=== PATIENT | female | born 1945 | race Caucasian/White ===

== ENCOUNTER 2020-01-27 07:44 | Day surgery (SDC) | payer MEDICARE, OTHER ==
[~2020-01-27 07:44] MED LIST: Lactated Ringers 1,000 ML IV SCH; Lidocaine 1% 4 ML ONE; Lidocaine 1%/Sod Bicarbonate in NS 8.4% 1 ML Syringe IDERM PRN; Propofol 200 MG/20 ML SDV ONE; Sodium Chloride 0.9% 10 ML Syringe FLUSH PRN
--- NOTE | 2020-01-27 08:12 | PCM.PREANE ---
Preanesthetic Assessment - Anesthesia/Transfusion/Family Hx Anesthesia History: Prior Anesthesia Without Reaction Family History of Anesthesia Reaction: No Transfusion History: No Prior Transfusion(s) - Review of Systems General: No Symptoms Pulmonary: No Symptoms Cardiovascular: No Symptoms Gastrointestinal: No Symptoms Neurological: No Symptoms Other: Reports: None - Physical Assessment NPO Status Date: 01/26/20 NPO Status Time: 18:00 ASA Class: 2 Mental Status: Alert & Oriented x3 Airway Class: Mallampati = 1 Dentition: Reports: Normal Dentition Thyro-Mental Finger Breadths: 3 Mouth Opening Finger Breadths: 3 ROM/Head Extension: Full Lungs: Clear to Auscultation, Normal Respiratory Effort Cardiovascular: Regular Rate, Regular Rhythm, Murmurs - Allergies Allergies/Adverse Reactions: Allergies Allergy/AdvReac Type Severity Reaction Status Date / Time Penicillins Allergy Rash Verified 01/26/20 18:09 - Anesthesia Plan Beta Braulio: Metoprolol Med Last Dose Date: 01/27/20 Med Last Dose Time: 07:30 - Acknowledgements Anesthesia Type Planned: MAC Pt an Appropriate Candidate for the Planned Anesthesia: Yes Alternatives and Risks of Anesthesia Discussed w Pt/Guardian: Yes Pt/Guardian Understands and Agrees with Anesthesia Plan: Yes PreAnesthesia Questionnaire HEENT History: Reports: Other (See Below) Other HEENT History: DENTAL INFECTION Cardiovascular History: Reports: Heart Murmur, High Cholesterol, Hypertension Respiratory History: Reports: Other (See Below) Other Respiratory History: PULMONARY NODULE Gastrointestinal History: Reports: None Genitourinary History: Reports: None ROBOTICS 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 History: Reports: None Musculoskeletal History: Reports: Back Pain, Chronic Neurological History: Reports: None Psychiatric History: Reports: Anxiety Endocrine/Metabolic History: Reports: Diabetes, Type II Immunologic History: Reports: None Oncologic (Cancer) History: Reports: Other (See Below) Other Oncologic History: ENDOMETRIAL CARCINOMA Dermatologic History: Reports: None - Infectious Disease History Infectious Disease History: Reports: None - Past Surgical History Head Surgeries/Procedures: Reports: None HEENT Surgical History: Reports: Cataract Surgery Cardiovascular Surgical History: Reports: None Respiratory Surgical History: Reports: None GI Surgical History: Reports: Colonoscopy Female Surgical History: Reports: Hysterectomy, Tubal Ligation Male Surgical History: Reports: None Endocrine Surgical History: Reports: None Neurological Surgical History: Reports: None Musculoskeletal Surgical History: Reports: None Oncologic Surgical History: Reports: None Dermatological Surgical History: Reports: None - SUBSTANCE USE Smoking Status *Q: Never Smoker Days Per Week of Alcohol Use: 7 Number of Drinks Per Day: 1 Total Drinks Per Week: 7 Recreational Drug Use History: No - HOME MEDS Home Medications: Home Meds OLANZapine [Olanzapine] 5 mg PO BEDTIME 01/15/18 [History] atorvaSTATin [Lipitor] 40 mg PO BEDTIME 01/15/18 [History] Aspirin 81 mg PO DAILY 01/26/20 [History] Losartan Potassium 50 mg PO DAILY 01/26/20 [History] Metoprolol Succinate 100 mg PO DAILY 01/26/20 [History] clonazePAM [Clonazepam] 1 mg PO BEDTIME 01/26/20 [History] hydroCHLOROthiazide [Hydrochlorothiazide] 12.5 mg PO DAILY 01/26/20 [History] metFORMIN HCl [Metformin HCl] 1,000 mg PO BID 01/26/20 [History] - CURRENT (IN HOUSE) MEDS Current Meds: Current Medications Lactated Ringer's (Ringers, Lactated) 1,000 mls @ 125 mls/hr IV ASDIRECTED CURTIS Stop: 01/27/20 23:00 Lidocaine/Sodium Bicarbonate (Buffered Lidocaine 1% In Ns 8.4%) 0.25 ml IDERM ONETIME PRN PRN Reason: Prior to IV Start Stop: 01/27/20 18:00 Sodium Chloride (Saline Flush) 10 ml FLUSH ASDIRECTED PRN PRN Reason: Keep Vein Open Stop: 01/27/20 18:00 Discontinued Medications Lidocaine HCl (Xylocaine-Mpf 1%) Confirm Administered Dose 4 mls @ as directed .ROUTE .STK-MED ONE Stop: 01/27/20 07:36 Propofol (Diprivan 20 Ml) Confirm Administered Dose 200 mg .ROUTE .STK-MED ONE Stop: 01/27/20 07:35
[2020-01-27] MEDS ORDERED: Propofol 200 MG/20 ML SDV ONE ×2 (09:26→09:41)
--- NOTE | 2020-01-27 10:23 | PCM48HPAN ---
Post Anesthesia Note - EVALUATION WITHIN 48HRS OF ANESTHETIC Vital Signs in Normal Range: Yes Patient Participated in Evaluation: Yes Respiratory Function Stable: Yes Airway Patent: Yes Cardiovascular Function Stable: Yes Hydration Status Stable: Yes Pain Control Satisfactory: Yes Nausea and Vomiting Control Satisfactory: Yes Mental Status Recovered: Yes Vital Signs: Last Vital Signs Temp 36.8 C 01/27/20 08:00 Pulse 57 L 01/27/20 08:00 Resp 16 01/27/20 08:00 BP 124/76 01/27/20 08:00 Pulse Ox 96 01/27/20 08:00
--- NOTE | 2020-01-28 07:59 | PCM.PRNOTE ---
- Free Text/Narrative Note: Date: 01/27/2020 Procedure: screening colonoscopy Findings: mediocre prep. 1 cm cecal polyp. Large, irregular shaped fungating lesion near hepatic flexure highly suspicious for malignancy. Detailed Report: The patient was taken to the endoscopy suite and placed in left lateral decubitus position. Time out was performed and monitored anesthesia care initiated. The anus appeared normal and digital exam was unremarkable. The colonoscope was inserted and advanced to the cecum. This was somewhat of a challenge given redundancy of the colon. The prep was suboptimal; the patient had eaten some cookies a few hours prior to procedure. There was a roughly 1 cm broad-based cecal polyp that was biopsied with hot forceps. Remnant tissue was fulgurated. Near what seemed to be the hepatic flexure, a large, irregular shaped fungating lesion that appeared grossly like a malignant tumor was identified. A large piece was resected with the hot snare but this specimen was too large to successfully retrieve. Several samples were taken with biopsy forceps. The lesion was not amenable to complete endoscopic resection. No other lesions were identified on withdrawal of the scope, though the bowel prep was not optimal for complete inspection. No significant diverticular or hemorrhoidal disease appreciated. Air was evacuated and the scope completely withdrawn. The patient tolerated the procedure well. Faraz Ely MD General Surgery
== END 2020-01-27 11:42 | disposition home or self-care (01) ==
LOC: JD.SDS 07:44
PROVIDERS: ATTEND Surgery
DX: Z12.11 Encounter for screening for malignant neoplasm of colon (principal); D12.0 Benign neoplasm of cecum; D12.3 Benign neoplasm of transverse colon; F41.9 Anxiety disorder, unspecified; E78.5 Hyperlipidemia, unspecified; I10 Essential (primary) hypertension; E78.00 Pure hypercholesterolemia, unspecified; E11.9 Type 2 diabetes mellitus without complications; Z88.0 Allergy status to penicillin; Z79.82 Long term (current) use of aspirin; Z79.899 Other long term (current) drug therapy; Z79.84 Long term (current) use of oral hypoglycemic drugs
CPT/HCPCS: 45380; J2001; J2704; J7120; 00812

== ENCOUNTER 2020-02-10 07:31 | Inpatient (IN) | payer MEDICARE, OTHER ==
[~2020-02-10 07:31] MED LIST changes: -Lidocaine 1% 4 ML ONE; -Propofol 200 MG/20 ML SDV ONE
[2020-02-10] MEDS ORDERED: Bupivacaine 0.5%/EPINEPHrine 1:200,000 50 ML MDV ONE (08:24)
--- NOTE | 2020-02-10 09:13 | PCM.PREANE ---
Preanesthetic Assessment - Anesthesia/Transfusion/Family Hx Anesthesia History: Prior Anesthesia Without Reaction Transfusion History: No Prior Transfusion(s) - Physical Assessment NPO Status Date: 02/09/20 NPO Status Time: 17:00 Vital Signs: Last Vital Signs Temp 97.3 F 02/10/20 07:50 Pulse 69 02/10/20 07:50 Resp 16 02/10/20 07:50 BP 131/76 02/10/20 07:50 Pulse Ox 97 02/10/20 07:50 Height: 1.57 m Weight: 64.864 kg Thyro-Mental Finger Breadths: 3 Mouth Opening Finger Breadths: 3 ROM/Head Extension: Full Lungs: Clear to Auscultation, Normal Respiratory Effort Cardiovascular: Regular Rate, Regular Rhythm, Murmurs - Allergies Allergies/Adverse Reactions: Allergies Allergy/AdvReac Type Severity Reaction Status Date / Time Penicillins Allergy Rash Verified 02/10/20 08:55 - Anesthesia Plan Beta Braulio: Metoprolol Med Last Dose Date: 02/10/20 Med Last Dose Time: 06:30 - Acknowledgements Anesthesia Type Planned: General Anesthesia, Regional Block (possibly TAP block post op) Pt an Appropriate Candidate for the Planned Anesthesia: Yes Alternatives and Risks of Anesthesia Discussed w Pt/Guardian: Yes Pt/Guardian Understands and Agrees with Anesthesia Plan: Yes PreAnesthesia Questionnaire HEENT History: Reports: Other (See Below) Other HEENT History: DENTAL INFECTION Cardiovascular History: Reports: Heart Murmur, High Cholesterol, Hypertension Respiratory History: Reports: Other (See Below) Other Respiratory History: PULMONARY NODULE Musculoskeletal History: Reports: Back Pain, Chronic Psychiatric History: Reports: Anxiety Endocrine/Metabolic History: Reports: Diabetes, Type II Oncologic (Cancer) History: Reports: Other (See Below) Other Oncologic History: ENDOMETRIAL CARCINOMA - Past Surgical History HEENT Surgical History: Reports: Cataract Surgery GI Surgical History: Reports: Colonoscopy Female Surgical History: Reports: Hysterectomy, Tubal Ligation Dermatological Surgical History: Reports: None - SUBSTANCE USE Smoking Status *Q: Never Smoker Second Hand Smoke Exposure: No Days Per Week of Alcohol Use: 7 Number of Drinks Per Day: 1 Total Drinks Per Week: 7 Recreational Drug Use History: No - HOME MEDS Home Medications: Home Meds OLANZapine [Olanzapine] 5 mg PO BEDTIME 01/15/18 [History] atorvaSTATin [Lipitor] 40 mg PO BEDTIME 01/15/18 [History] Aspirin 81 mg PO DAILY 01/26/20 [History] Losartan Potassium 50 mg PO DAILY 01/26/20 [History] Metoprolol Succinate 100 mg PO DAILY 01/26/20 [History] clonazePAM [Clonazepam] 1 mg PO BEDTIME 01/26/20 [History] hydroCHLOROthiazide [Hydrochlorothiazide] 12.5 mg PO DAILY 01/26/20 [History] metFORMIN HCl [Metformin HCl] 1,000 mg PO BID 01/26/20 [History] Docusate Sodium [Stool Softener] 100 mg PO DAILY 02/07/20 [History] - CURRENT (IN HOUSE) MEDS Current Meds: Current Medications Lactated Ringer's (Ringers, Lactated) 1,000 mls @ 125 mls/hr IV ASDIRECTED CURTIS Stop: 02/10/20 23:00 Lidocaine/Sodium Bicarbonate (Buffered Lidocaine 1% In Ns 8.4%) 0.25 ml IDERM ONETIME PRN PRN Reason: Prior to IV Start Stop: 02/10/20 18:00 Sodium Chloride (Saline Flush) 10 ml FLUSH ASDIRECTED PRN PRN Reason: Keep Vein Open Stop: 02/10/20 18:00 Discontinued Medications Bupivacaine HCl/Epinephrine Bitart (Marcaine 0.5%/Epinephrine 1:200,000) Confirm Administered Dose 50 ml .ROUTE .STK-MED ONE Stop: 02/10/20 08:25
[2020-02-10] MEDS ORDERED: Propofol 200 MG/20 ML SDV ONE (09:29)
[2020-02-10] MEDS ORDERED: fentaNYL 250 MCG/5 ML SDV ONE (09:29)
[2020-02-10] MEDS ORDERED: Midazolam 1 MG/ML 2 ML SDV ONE (09:29)
[2020-02-10] MEDS ORDERED: Lidocaine 1% 4 ML ONE (09:30)
[2020-02-10] MEDS ORDERED: ceFAZolin 1 GM Vial ONE (09:30)
[2020-02-10] MEDS ORDERED: Succinylcholine/Sod PF 100 MG/5 ML SYRINGE IV ONE ×2 (09:32→10:08)
[2020-02-10] MEDS ORDERED: Dexamethasone 4 MG/ML 5 ML MDV ONE (10:07)
[2020-02-10] MEDS ORDERED: HYDROmorphone 0.5 MG/0.5 ML Syringe ONE (10:45)
[2020-02-10] MEDS ORDERED: fentaNYL 100 MCG/2 ML SDV IVPUSH PRN (11:01)
[2020-02-10] MEDS ORDERED: HYDROmorphone 0.5 MG/0.5 ML Syringe IVPUSH PRN (11:01)
[2020-02-10] MEDS ORDERED: Ondansetron 4 MG/2 ML SDV ONE (11:35)
[2020-02-10] MEDS ORDERED: Lactated Ringers 1,000 ML ONE ×2 (11:39)
[2020-02-10] MEDS ORDERED: ePHEDrine Sulfate/0.9% NaCl/Pf 25 MG/5 ML SYRINGE IV ONE (12:26)
[2020-02-10] MEDS ORDERED: Morphine 2 MG/ML SYRINGE IVPUSH PRN (12:39)
[2020-02-10] MEDS ORDERED: Ondansetron 4 MG in Sodium Chloride 0.9% 50 ML IV PRN (12:44)
[2020-02-10] MEDS ORDERED: Ondansetron 4 MG/2 ML SDV IV PRN ×2 (12:48→13:00)
--- NOTE | 2020-02-10 12:58 | PCM.PRNOTE ---
- Free Text/Narrative Note: Date: 02/10/2020 Operation: laparoscopic right colectomy, diagnostic upper endoscopy Surgeon: Faraz Ely MD Assisting: VANESSA Dover Pre-op antibiotic: 2 g cefoxitin EBL: 30 cc DVT Ppx: SCDs Findings:Tattoo ink from colonoscopy helped localize the lesion, which was just proximal to the hepatic flexure. The resected specimen included the lesion in question with at least 5 cm margins in either side. The lesion measured about 3- 4 cm in greatest dimension. Side to side stapled ileocolic anastomosis completed without difficulty. Upper endoscopy was fairly unremarkable, a biopsy of the GE junction was obtained. Detailed Report: The patient was taken to the operating room and placed on the table in supine position. Timeout was performed, and general endotracheal anesthesia was initiated. Intubation was difficult, requiring a glide scope after initial attempts. Once the airway was secured, a Canas catheter was placed. The patient's left arm was tucked at her side, abdominal hair was clipped and the abdomen was prepped and draped in usual sterile fashion. 0.5% Marcaine with epinephrine was injected at all planned incision sites. A Veress needle was inserted into the abdomen at Sanderson's point without complication. The abdomen was insufflated to 15 mmHg CO2. Air was aspirated a site just superior to the umbilicus, and this was anesthetized with Marcaine. A 12 mm port was placed just superior to the umbilicus, and a 10 mm 30 degree laparoscope was inserted. The Veress insertion site was inspected, which looked okay, and the Veress needle was removed. Additional 5 mm ports were then placed under vision of the laparoscope. 1 was placed at the left upper quadrant, one at the left lower quadrant, and one at the right lower quadrant. The patient was positioned in Trendelenburg, and rotated towards the surgeon and standing on the patient's left side. Time was taken to provide good visualization of the right colon and its mesentery. With proper retraction, the ileocolic pedicle was identified. A small window was made posterior to the vessels near their base, and the colon mesentery was from the underlying retroperitoneal structures out towards the lateral aspect of the ascending colon. The base of the ileocolic pedicle was divided using the LigaSure. The duodenum was identified and protected. Once the medial to lateral mobilization was completed, the terminal ileum was inspected. Some adhesions were freed, and the appendix was freed from adhesions to surrounding tissue. The 60 mm powered laparoscopic linear stapler was used to divide the terminal ileum a few centimeters proximal to the ileocecal junction. Lateral attachments of the ascending colon were then taken down using the LigaSure. Next, attention was turned to the hepatic flexure. Omentum was reflected off of the proximal transverse colon from lateral to medial. There was some redundancy to the proximal transverse colon near the hepatic flexure, which made mobilization of the colon for anastomosis easy. With adequate mobilization, pneumoperitoneum was released and an upper midline incision measuring approximately 7 cm was made from the supraumbilical laparoscopic port site. The staple line of the terminal ileum was brought out into the operative field after placement of a medium-sized wound protector. The specimen was externalized, and an appropriate division point of the proximal transverse colon was identified. The powered stapler was used to divide the colon at this point. Specimen was completely freed, and was passed off the table. We took time to open up the specimen and ensure that the lesion in question had been resected with adequate proximal and distal margins. With this being the case, attention was then turned to making the ileocolic anastomosis. The terminal ileum and transverse colon aligned side to side easily without any tension. The antimesenteric borders were aligned, and enterotomies made at the staple lines to allow for [id number] anastomosis using the linear stapler. A 55 mm hand-held YASIR linear cutting stapler with blue load was used to make the anastomosis. The remaining enterotomy was then closed using a 30 mm TA stapler with a blue load. A reinforcing crotch stitch of 3-0 Vicryl was placed at the end of the staple line. The bowel was reduced into the abdomen, and omentum was draped down over the anastomosis. The surgeon 's gloves and gown were changed at this point, and the wound protector removed. Midline fascia was closed with running 0 PDS suture. Skin incisions were closed with deep dermal interrupted stitches of 3-0 Vicryl. Wounds were dressed with Mastisol and Steri-Strips, with gauze and Tegaderm dressings applied. Next, diagnostic upper endoscopy was performed due to findings of thickened esophageal wall and question of esophagitis on preoperative CT scan. The endoscope was inserted in the mouth and advanced to the stomach with ease. The stomach appeared grossly normal. On retroflexion, the GE junction appeared normal, without any evidence of hiatal hernia. Scope was then withdrawn into the distal esophagus. There was some hypertrophic, glandular appearing tissue near the gastroesophageal junction. A sample biopsy was obtained with cold forceps. The remainder of the esophagus appeared grossly normal. Air was suctioned from the stomach, and the scope was withdrawn. The patient tolerated the procedure well. Faraz Ely MD General Surgery
--- NOTE | 2020-02-10 13:05 | PCM.POSTAN ---
POST ANESTHESIA ASSESSMENT - MENTAL STATUS Mental Status: Somnolent - VITAL SIGNS Vital Signs: Last Vital Signs Temp 97.0 F 02/10/20 12:50 Pulse 69 02/10/20 07:50 Resp 8 L 02/10/20 12:50 BP 133/60 02/10/20 12:50 Pulse Ox 98 02/10/20 12:50 - RESPIRATORY Respiratory Status: Respiratory Rate WNL, Airway Patent, O2 Saturation Stable, Supplemental Oxygen - CARDIOVASCULAR CV Status: Pulse Rate WNL, Blood Pressure Stable - GASTROINTESTINAL GI Status: No Symptoms - PAIN Pain Score: 0 - POST OP HYDRATION Hydration Status: Adequate & Stable
[2020-02-10] MEDS: Lactated Ringers 1,000 ML IV SCH ×2 (14:41→23:54)
[2020-02-10] MEDS: Acetaminophen 325 MG Tab PO SCH ×2 (14:42→21:05)
[2020-02-10] MEDS: Heparin Sodium 5,000 Units/ML Vial SUBCUT SCH ×2 (14:47→21:05)
[2020-02-10] MEDS: Benzocaine/Cetylpyridinium/Menthol Lozenge MUCMEM PRN ×2 (15:26→21:04)
[2020-02-10] MEDS: OLANZapine 5 MG Tab PO SCH (21:05)
[2020-02-11] MEDS: Benzocaine/Cetylpyridinium/Menthol Lozenge MUCMEM PRN (02:47)
[2020-02-11] MEDS: oxyCODONE 5 MG Tab PO PRN ×4 (02:47→23:08)
[2020-02-11] MEDS: Acetaminophen 325 MG Tab PO SCH ×4 (05:38→21:03)
[2020-02-11] MEDS: Heparin Sodium 5,000 Units/ML Vial SUBCUT SCH ×3 (05:38→21:03)
--- NOTE | 2020-02-11 07:57 | PCM48HPAN ---
Post Anesthesia Note - EVALUATION WITHIN 48HRS OF ANESTHETIC Vital Signs in Normal Range: Yes Patient Participated in Evaluation: Yes Respiratory Function Stable: Yes Airway Patent: Yes Cardiovascular Function Stable: Yes Hydration Status Stable: Yes Pain Control Satisfactory: Yes Nausea and Vomiting Control Satisfactory: Yes Mental Status Recovered: Yes Vital Signs: Last Vital Signs Temp 36.6 C 02/11/20 02:47 Pulse 72 02/11/20 02:47 Resp 16 02/11/20 02:47 BP 131/109 H 02/11/20 02:51 Pulse Ox 97 02/11/20 02:47 - COMMENTS/OBSERVATIONS Free Text/Narrative:: no anesthesia complications noted
[2020-02-11] MEDS: Metoprolol Succinate 50 MG Tab.ER PO SCH (09:16)
[2020-02-11] MEDS: Rosuvastatin 10 MG Tab PO SCH (09:17)
[2020-02-11] MEDS: D5 1/2 NS w/ 20 mEq/L KCl 1,000 ML IV SCH ×2 (09:18→20:56)
[2020-02-11] MEDS: Losartan 25 MG Tab PO SCH (12:51)
[2020-02-11] MEDS: Hydrochlorothiazide 12.5 MG Cap PO SCH (12:51)
[2020-02-11] MEDS: metFORMIN 500 MG Tab PO SCH (16:20)
--- NOTE | 2020-02-11 17:08 | PCM.SN.2 ---
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 No flatus. O: AF-VSS, ample urine output no distress abdomen soft, appropriately tender, dressings clean maloney in place with clear yellow urine output A: Doing well after right colectomy P: -switch to maintenance D5 1/2 NS w 20 mEq KCl -regular diet; go slow, await return of bowel function -up out of bed ambulating today -maloney catheter out, f/u trial of void -heparin SC for DVT ppx
[2020-02-11] MEDS: OLANZapine 5 MG Tab PO SCH (20:53)
[2020-02-12] MEDS: Acetaminophen 325 MG Tab PO SCH ×3 (07:31→21:33)
[2020-02-12] MEDS: metFORMIN 500 MG Tab PO SCH ×2 (07:32→17:45)
[2020-02-12] MEDS: Heparin Sodium 5,000 Units/ML Vial SUBCUT SCH ×3 (07:32→21:33)
[2020-02-12] MEDS: oxyCODONE 5 MG Tab PO PRN ×4 (07:41→21:34)
[2020-02-12] MEDS: Rosuvastatin 10 MG Tab PO SCH (08:21)
[2020-02-12] MEDS: Metoprolol Succinate 50 MG Tab.ER PO SCH (08:22)
[2020-02-12] MEDS: Hydrochlorothiazide 12.5 MG Cap PO SCH (08:23)
[2020-02-12] MEDS: Losartan 25 MG Tab PO SCH (08:23)
[2020-02-12] MEDS ORDERED: Loperamide 2 MG Cap PO ONE (08:41)
--- NOTE | 2020-02-12 11:34 | PCM.SN.2 ---
- Free Text/Narrative Note: POD 2 s/p laparoscopic right colectomy for large tubulovillous adenoma S: reports diarrhea. Otherwise, no complaints, no issues overnight. O: AF-VSS alert, no distress comfortable on room air abd dressings clean and dry A: doing well, pain controlled, tolerating diet, ambulating. P: d/c IV fluids one time dose imodium for diarrhea anticipate discharge to home tomorrow if doing well for another 24 hrs.
[2020-02-12] MEDS: OLANZapine 5 MG Tab PO SCH (21:33)
[2020-02-13] MEDS: Heparin Sodium 5,000 Units/ML Vial SUBCUT SCH ×2 (06:09→14:22)
[2020-02-13] MEDS: metFORMIN 500 MG Tab PO SCH (06:10)
[2020-02-13] MEDS: Acetaminophen 325 MG Tab PO SCH ×2 (06:11→14:23)
[2020-02-13] MEDS: oxyCODONE 5 MG Tab PO PRN ×2 (06:11→11:19)
[2020-02-13] MEDS: Rosuvastatin 10 MG Tab PO SCH (09:05)
[2020-02-13] MEDS: Hydrochlorothiazide 12.5 MG Cap PO SCH (09:05)
[2020-02-13] MEDS: Losartan 25 MG Tab PO SCH (09:05)
[2020-02-13] MEDS: Metoprolol Succinate 50 MG Tab.ER PO SCH (09:06)
--- NOTE | 2020-02-13 12:22 | PCM.DCSUM1 ---
Discharge Summary - Hospital Course Free Text/Narrative:: Ms. 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 The lesion was not amenable to resection, and had a gross appearance suspicious for harboring malignancy. She presented for elective laparoscopic right hemicolectomy on February 08. The operation was completed without any issues. Postoperatively she did well, her pain was manageable with oral analgesics. She was able to ambulate with some assistance, and had an evaluation with the physical and occupational therapists. She continue to work on pulmonary toilet and ambulation, and on postoperative day 2 was able to tolerate a regular diet. By postoperative day 3 she had a small bowel movement and began to pass gas. On postoperative day 4, she had completely normalized and was deemed fit for discharge to home. - Discharge Data Discharge Date: 02/13/20 Discharge Disposition: Home, Self-Care 01 Condition: Good - Referral to Home Health Primary Care Physician: Tali Alonso NP - Patient Summary/Data Operative Procedure(s) Performed: laparoscopic right colectomy with ileocolic anastomosis Consults: Consultations 02/12/20 15:10 Consult to Physical Therapy [PT Evaluation and Treatment] [CONS] Routine - Patient Instructions Diet: Usual Diet as Tolerated Activity: As Tolerated, No Lifting Over 10 Pounds Showering/Bathing: May Shower Wound/Incision Care: Keep Operative Site/Wound Site Clean and Dry Notify Provider of: Fever, Increased Pain, Swelling and Redness, Drainage, Nausea and/or Vomiting - Discharge Plan *PRESCRIPTION DRUG MONITORING PROGRAM REVIEWED*: Not Applicable *COPY OF PRESCRIPTION DRUG MONITORING REPORT IN PATIENT ANTONIO: Not Applicable Prescriptions/Med Rec: oxyCODONE 5 mg PO Q4H PRN #15 tab PRN Reason: Pain Home Medications: Home Meds OLANZapine [Olanzapine] 5 mg PO BEDTIME 01/15/18 [History] atorvaSTATin [Lipitor] 40 mg PO BEDTIME 01/15/18 [History] Aspirin 81 mg PO DAILY 01/26/20 [History] Losartan Potassium 50 mg PO DAILY 01/26/20 [History] Metoprolol Succinate 100 mg PO DAILY 01/26/20 [History] clonazePAM [Clonazepam] 1 mg PO BEDTIME 01/26/20 [History] hydroCHLOROthiazide [Hydrochlorothiazide] 12.5 mg PO DAILY 01/26/20 [History] metFORMIN HCl [Metformin HCl] 1,000 mg PO BID 01/26/20 [History] Docusate Sodium [Stool Softener] 100 mg PO DAILY 02/07/20 [History] oxyCODONE 5 mg PO Q4H PRN #15 tab 02/13/20 [Rx] Oxygen Therapy Mode: Room Air Patient Handouts: Type 2 Diabetes Mellitus, Diagnosis, Adult - Discharge Summary/Plan Comment DC Time >30 min.: No - Patient Data Vitals - Most Recent: Last Vital Signs Temp 36.7 C 02/13/20 08:58 Pulse 67 02/13/20 09:06 Resp 16 02/13/20 08:58 BP 141/91 H 02/13/20 09:06 Pulse Ox 95 02/13/20 12:00 Weight - Most Recent: 63.049 kg I&O - Last 24 hours: Intake & Output 02/12/20 02/13/20 02/13/20 22:59 06:59 14:59 Intake Total 1810 500 180 Output Total 2400 800 Balance -590 -300 180 Med Orders - Current: Current Medications Acetaminophen (Tylenol) 975 mg PO Q8H [facility] Last Admin: 02/13/20 06:11 Dose: 975 mg Documented by: Benzocaine/Menthol (Cepacol Sore Throat) 1 lozenge MUCMEM Q2H PRN PRN Reason: Sore Throat Last Admin: 02/11/20 02:47 Dose: 1 lozenge Documented by: Heparin Sodium (Porcine) (Heparin Sodium) 5,000 units SUBCUT Q8H [facility] Last Admin: 02/13/20 06:09 Dose: 5,000 units Documented by: Hydrochlorothiazide (Hydrochlorothiazide) 12.5 mg PO DAILY [facility] Last Admin: 02/13/20 09:05 Dose: 12.5 mg Documented by: Losartan Potassium (Cozaar) 50 mg PO DAILY [facility] Last Admin: 02/13/20 09:05 Dose: 50 mg Documented by: Metformin HCl (Glucophage) 1,000 mg PO BIDMEALS [facility] Last Admin: 02/13/20 06:10 Dose: 1,000 mg Documented by: Metoprolol Succinate (Toprol Xl) 100 mg PO DAILY [facility] Last Admin: 02/13/20 09:06 Dose: 100 mg Documented by: Olanzapine (Zyprexa) 5 mg PO BEDTIME [facility] Last Admin: 02/12/20 21:33 Dose: 5 mg Documented by: Ondansetron HCl (Zofran) 4 mg IV Q8H PRN PRN Reason: Nausea Oxycodone HCl (Oxycodone) 5 mg PO Q4H PRN PRN Reason: Pain (moderate 4-6) Last Admin: 02/13/20 11:19 Dose: 5 mg Documented by: Rosuvastatin Calcium (Crestor) 10 mg PO DAILY [facility] Last Admin: 02/13/20 09:05 Dose: 10 mg Documented by: Discontinued Medications Bupivacaine HCl/Epinephrine Bitart (Marcaine 0.5%/Epinephrine 1:200,000) Confirm Administered Dose 50 ml .ROUTE .STK-MED ONE Stop: 02/10/20 08:25 Last Admin: 02/10/20 10:20 Dose: 30 ml Documented by: Cefazolin Sodium (Ancef) Confirm Administered Dose 2 gm .ROUTE .STK-MED ONE Stop: 02/10/20 09:31 Dexamethasone (Dexamethasone) Confirm Administered Dose 20 mg .ROUTE .STK-MED ONE Stop: 02/10/20 10:08 Ephedrine Sulfate (Ephedrine 25 Mg/5 Ml Syringe) Confirm Administered Dose 25 mg IV .STK-MED ONE Stop: 02/10/20 12:27 Fentanyl (Sublimaze) Confirm Administered Dose 250 mcg .ROUTE .STK-MED ONE Stop: 02/10/20 09:30 Fentanyl (Sublimaze) 100 mcg IVPUSH Q5M PRN PRN Reason: Pain Stop: 02/10/20 18:00 Glycopyrrolate () Confirm Administered Dose 1 mg .ROUTE .STK-MED ONE Stop: 02/10/20 12:23 Hydromorphone HCl (Dilaudid) Confirm Administered Dose 0.5 mg .ROUTE .STK-MED ONE Stop: 02/10/20 10:46 Hydromorphone HCl (Dilaudid) 0.5 mg IVPUSH Q10M PRN PRN Reason: Pain (severe 7-10) Stop: 02/10/20 18:00 Lactated Ringer's (Ringers, Lactated) 1,000 mls @ 125 mls/hr IV ASDIRECTED [facility] Stop: 02/10/20 23:00 Last Admin: 02/10/20 08:15 Dose: 125 mls/hr Documented by: Lidocaine HCl (Xylocaine-Mpf 1%) Confirm Administered Dose 4 mls @ as directed .ROUTE .STK-MED ONE Stop: 02/10/20 09:31 Cefoxitin Sodium (Mefoxin In Dextrose,Iso-Osm 2 Gm/50 Ml) Confirm Administered Dose 50 mls @ as directed .ROUTE .STK-MED ONE Stop: 02/10/20 10:09 Lactated Ringer's (Ringers, Lactated) Confirm Administered Dose 1,000 mls @ as directed .ROUTE .STK-MED ONE Stop: 02/10/20 11:40 Lactated Ringer's (Ringers, Lactated) Confirm Administered Dose 1,000 mls @ as directed .ROUTE .STK-MED ONE Stop: 02/10/20 11:40 Lactated Ringer's (Ringers, Lactated) 1,000 mls [facility] Admin: 02/10/20 23:54 Dose: 100 mls/hr Documented by: Ondansetron HCl 4 mg/ Sodium (Chloride) 52 mls @ 100 mls/hr IV Q8H PRN PRN Reason: Nausea Potassium Chloride/Dextrose/Sod Cl (D5 1/2 Ns W/ 20 Meq/L Kcl) 1,000 mls @ 75 mls/hr IV ASDIRECTED [facility] Last Admin: 02/11/20 20:56 Dose: 75 mls/hr Documented by: Lidocaine/Sodium Bicarbonate (Buffered Lidocaine 1% In Ns 8.4%) 0.25 ml IDERM ONETIME PRN PRN Reason: Prior to IV Start Stop: 02/10/20 18:00 Last Admin: 02/10/20 08:15 Dose: 0.25 ml Documented by: Loperamide HCl (Imodium) 2 mg PO ONETIME ONE Stop: 02/12/20 08:42 Last Admin: 02/12/20 09:21 Dose: 2 mg Documented by: Midazolam HCl (Versed 1 Mg/Ml) Confirm Administered Dose 4 mg .ROUTE .STK-MED O NE Stop: 02/10/20 09:30 Morphine Sulfate (Morphine) 1 mg IVPUSH Q4H PRN PRN Reason: Pain (severe 7-10) Neostigmine Methylsulfate (Neostigmine Methylsulfate) Confirm Administered Dose 5 mg .ROUTE .STK-MED ONE Stop: 02/10/20 12:23 Ondansetron HCl (Zofran) Confirm Administered Dose 8 mg .ROUTE .STK-MED ONE Stop: 02/10/20 11:36 Propofol (Diprivan 20 Ml) Confirm Administered Dose 200 mg .ROUTE .STK-MED ONE Stop: 02/10/20 09:30 Sodium Chloride (Saline Flush) 10 ml FLUSH ASDIRECTED PRN PRN Reason: Keep Vein Open Stop: 02/10/20 18:00 Vecuronium [employer] (Vecuronium) Confirm Administered Dose 10 mg .ROUTE .STK-MED ONE Stop: 02/10/20 09:29
== END 2020-02-13 15:05 | disposition home or self-care (01) | DRG 331 ==
LOC: JD.MS 07:31
PROVIDERS: ADMIT Surgery; ATTEND Surgery
PROC: 0DTF4ZZ Resection of Right Large Intestine, Percutaneous Endoscopic Approach (ICD-10-PCS; principal; 2020-02-10)
DX: C18.9 Malignant neoplasm of colon, unspecified (principal); F41.9 Anxiety disorder, unspecified; E78.5 Hyperlipidemia, unspecified; I10 Essential (primary) hypertension; G47.00 Insomnia, unspecified; E11.9 Type 2 diabetes mellitus without complications; Z88.0 Allergy status to penicillin; Z79.82 Long term (current) use of aspirin; Z79.84 Long term (current) use of oral hypoglycemic drugs; Z79.899 Other long term (current) drug therapy
CPT/HCPCS: 00790; 36415; 80048; 85025; 88305; 88309; 88341; 88342; 97110-GP; 97161-GP; A9270-GY; J0171; J0330; J0690; J0694; J1100; J1170; J1644; J2001; J2250; J2405; J2704; J2710; J3010; J3480; J3490; J7120

== ENCOUNTER 2020-05-07 07:32 | Day surgery (SDC) | payer MEDICARE, OTHER ==
[~2020-05-07 07:32] MED LIST changes: +Lidocaine 1% 4 ML ONE; +Midazolam 1 MG/ML 2 ML SDV ONE; +Propofol 200 MG/20 ML SDV ONE; +Rocuronium 50 MG/5 ML Vial ONE; +fentaNYL 250 MCG/5 ML SDV ONE
[2020-05-07] MEDS ORDERED: Bupivacaine 0.5%/EPINEPHrine 1:200,000 50 ML MDV ONE (07:50)
--- NOTE | 2020-05-07 08:13 | PCM.PREANE ---
Preanesthetic Assessment - Procedure Proposed Procedure: Laparoscopic Cholecystectomy - Anesthesia/Transfusion/Family Hx Anesthesia History: Prior Anesthesia Without Reaction Family History of Anesthesia Reaction: No Transfusion History: No Prior Transfusion(s) - Review of Systems General: No Symptoms Pulmonary: No Symptoms Cardiovascular: No Symptoms Gastrointestinal: No Symptoms Neurological: No Symptoms Other: Reports: Diabetes, Anxiety - Physical Assessment NPO Status Date: 05/06/20 NPO Status Time: 00:00 Height: 1.57 m Weight: 65 kg ASA Class: 2 Mental Status: Alert & Oriented x3 Airway Class: Mallampati = 1 Dentition: Reports: Normal Dentition Thyro-Mental Finger Breadths: 3 Mouth Opening Finger Breadths: 3 ROM/Head Extension: Full Lungs: Clear to Auscultation, Normal Respiratory Effort Cardiovascular: Regular Rate, Regular Rhythm - Allergies Allergies/Adverse Reactions: Allergies Allergy/AdvReac Type Severity Reaction Status Date / Time Penicillins Allergy Rash Verified 05/06/20 16:59 - Blood Blood Available: No Product(s) Available: None - Anesthesia Plan Pre-Op Medication Ordered: Beta Braulio Beta Braulio: Metoprolol Med Last Dose Date: 05/07/20 Med Last Dose Time: 06:00 - Acknowledgements Anesthesia Type Planned: General Anesthesia Pt an Appropriate Candidate for the Planned Anesthesia: Yes Alternatives and Risks of Anesthesia Discussed w Pt/Guardian: Yes Pt/Guardian Understands and Agrees with Anesthesia Plan: Yes PreAnesthesia Questionnaire HEENT History: Reports: Impaired Vision, Other (See Below) Other HEENT History: wears reading glasses, dental infection Cardiovascular History: Reports: Heart Murmur, High Cholesterol, Hypertension Respiratory History: Reports: Other (See Below) Other Respiratory History: PULMONARY NODULE Gastrointestinal History: Reports: Chronic Constipation Genitourinary History: Reports: None OPTICAL DESIGN ENGINEER History: Reports: None Musculoskeletal History: Reports: Back Pain, Chronic Neurological History: Reports: None Psychiatric History: Reports: Anxiety Endocrine/Metabolic History: Reports: Diabetes, Type II Hematologic History: Reports: None Immunologic History: Reports: None Oncologic (Cancer) History: Reports: Other (See Below) Other Oncologic History: ENDOMETRIAL CARCINOMA Dermatologic History: Reports: None - Infectious Disease History Infectious Disease History: Reports: None - Past Surgical History Head Surgeries/Procedures: Reports: None HEENT Surgical History: Reports: Cataract Surgery Cardiovascular Surgical History: Reports: None Respiratory Surgical History: Reports: None GI Surgical History: Reports: Colon, Colonoscopy, Other (See Below) Other GI Surgeries/Procedures: current right hemicolectomy Female Surgical History: Reports: Hysterectomy, Tubal Ligation Male Surgical History: Reports: None Endocrine Surgical History: Reports: None Neurological Surgical History: Reports: None Musculoskeletal Surgical History: Reports: None Oncologic Surgical History: Reports: None Dermatological Surgical History: Reports: None - SUBSTANCE USE Smoking Status *Q: Never Smoker Tobacco Use Within Last Twelve Months: No Second Hand Smoke Exposure: No Days Per Week of Alcohol Use: 7 Number of Drinks Per Day: 1 Total Drinks Per Week: 7 Recreational Drug Use History: No - HOME MEDS Home Medications: Home Meds OLANZapine [Olanzapine] 5 mg PO BEDTIME 01/15/18 [History] atorvaSTATin [Lipitor] 40 mg PO BEDTIME 01/15/18 [History] Aspirin 81 mg PO DAILY 01/26/20 [History] Metoprolol Succinate 100 mg PO DAILY 01/26/20 [History] clonazePAM [Clonazepam] 1 mg PO BEDTIME 01/26/20 [History] hydroCHLOROthiazide [Hydrochlorothiazide] 12.5 mg PO DAILY 01/26/20 [History] metFORMIN HCl [Metformin HCl] 1,000 mg PO BID 01/26/20 [History] - CURRENT (IN HOUSE) MEDS Current Meds: Current Medications Lactated Ringer's (Ringers, Lactated) 1,000 mls @ 125 mls/hr IV ASDIRECTED [facility] Stop: 05/07/20 23:00 Lidocaine/Sodium Bicarbonate (Buffered Lidocaine 1% In Ns 8.4%) 0.25 ml IDERM ONETIME PRN PRN Reason: Prior to IV Start Stop: 05/07/20 18:00 Sodium Chloride (Saline Flush) 10 ml FLUSH ASDIRECTED PRN PRN Reason: Keep Vein Open Stop: 05/07/20 18:00 Discontinued Medications Bupivacaine HCl/Epinephrine Bitart (Marcaine 0.5%/Epinephrine 1:200,000) Confirm Administered Dose 50 ml .ROUTE .STK-MED ONE Stop: 05/07/20 07:51 Fentanyl (Sublimaze) Confirm Administered Dose 250 mcg .ROUTE .STK-MED ONE Stop: 05/07/20 07:04 Lidocaine HCl (Xylocaine-Mpf 1%) Confirm Administered Dose 4 mls @ as directed .ROUTE .STK-MED ONE Stop: 05/07/20 07:01 Midazolam HCl (Versed 1 Mg/Ml) Confirm Administered Dose 2 mg .ROUTE .STK-MED ONE Stop: 05/07/20 07:04 Propofol (Diprivan 20 Ml) Confirm Administered Dose 200 mg .ROUTE .STK-MED ONE Stop: 05/07/20 07:01 Rocuronium [place] (Zemuron) Confirm Administered Dose 50 mg .ROUTE .STK-MED ONE Stop: 05/07/20 07:01
[2020-05-07] MEDS ORDERED: ceFAZolin 1 GM Vial ONE (08:25)
[2020-05-07] MEDS ORDERED: fentaNYL 100 MCG/2 ML SDV IVPUSH PRN (09:11)
[2020-05-07] MEDS ORDERED: Ondansetron 4 MG/2 ML SDV IVPUSH PRN (09:11)
[2020-05-07] MEDS ORDERED: HYDROmorphone 0.5 MG/0.5 ML Syringe IVPUSH ONE (09:13)
[2020-05-07] MEDS ORDERED: HYDROmorphone 0.5 MG/0.5 ML Syringe ONE ×2 (09:17→09:22)
[2020-05-07] MEDS ORDERED: fentaNYL 100 MCG/2 ML SDV ONE (09:28)
--- NOTE | 2020-05-07 10:11 | PCM.POSTAN ---
POST ANESTHESIA ASSESSMENT - MENTAL STATUS Mental Status: Alert, Oriented - VITAL SIGNS Vital Signs: Last Vital Signs Temp 36.3 C 05/07/20 07:35 Pulse 55 L 05/07/20 07:35 Resp 20 05/07/20 07:35 BP 112/64 05/07/20 07:35 Pulse Ox 98 05/07/20 07:35 - RESPIRATORY Respiratory Status: Respiratory Rate WNL, Airway Patent, O2 Saturation Stable - CARDIOVASCULAR CV Status: Pulse Rate WNL, Blood Pressure Stable - GASTROINTESTINAL GI Status: No Symptoms - PAIN Pain Score: 0 - POST OP HYDRATION Hydration Status: Adequate & Stable
--- NOTE | 2020-05-07 10:41 | PCM.PRNOTE ---
- Free Text/Narrative Note: Operative Report Operation: laparoscopic cholecystectomy Date: 05/07/2020 Attending Surgeon: Faraz Ely MD Indication for Surgery: large calcified gallstone on imaging Preoperative antibiotics: 2 g Ancef IV VTE prophylaxis: SCDs Estimated Blood Loss: 5 cc Findings: normal appearing gallbladder. The cystic artery branched near the infundibulum, with one branch going directly to the gallbladder and one running to the liver at the gallbladder fossa near the level of the infundibulum. Detailed Report: The patient underwent general endotracheal anesthesia after being placed supine on the operating table and initial timeout. The abdomen was prepped and draped in sterile fashion. A pre-incision timeout was performed confirming the patients identity and the operation to be performed. A Veress needle was inserted into the abdominal cavity below the left costal margin along the mid- clavicular line. The abdomen was insufflated with CO2 to 15 mm Hg. Gas was aspirated below the umbilicus with a syringe in order to ensure safe placement of a 5 mm bladed laparoscopic port. The 5mm 30 degree laparoscope was then inserted and viscera inspected. The gallbladder appeared normal. Two additional 5 mm ports were placed along the right subcostal region under direct vision with the laparoscope, and a 12 mm port was placed at the subxiphoid region. The gallbladder was grasped at the fundus with a locking grasper and retracted anteriorly and superiorly, exposing the infundibulum. This was grasped with the surgeons left hand grasper and retracted laterally. The hook electrode was used to open the overlying peritoneum, and this plane of dissection was developed along the edges of the gallbladder at its interface with the liver bed. A combination of hook electrode, blunt dissection with the suction occ therapist and the [place] grasper were used to carefully expose and skeletonize the cystic duct and artery. A critical view of safety was obtained. The cystic artery had a posterior branch. Hemolock clips were then placed on both structures- the proximal arterial clip was placed on the cystic artery proximal to the branch point, and each branch was clipped. Both branches were intimately associated with the gallbladder. The duct and artery were transected with laparoscopic scissors between the hemolock clips. The hook was then used to dissect the gallbladder free from its attachment to the liver. The specimen was then placed in an Endocatch bag and removed through the subxiphoid port. The liver bed was inspected and appeared hemostatic. The larger subxiphoid port was closed at the level of the fascia with vicryl suture using the PMI laparoscopic suture passer. Pneumoperitoneum was then released. All skin incisions were then closed with placement of subcuticular vicryl suture and dressed with dermabond. A total of 20 cc 0.5% marcaine with epinephrine was used for local anesthesia at the in cision sites. The patient tolerated the operation well, was extubated in the operating room and transferred to the PACU for routine post-anesthesia care.
--- NOTE | 2020-05-07 10:44 | PCM48HPAN ---
Post Anesthesia Note - EVALUATION WITHIN 48HRS OF ANESTHETIC Vital Signs in Normal Range: Yes Patient Participated in Evaluation: Yes Respiratory Function Stable: Yes Airway Patent: Yes Cardiovascular Function Stable: Yes Hydration Status Stable: Yes Pain Control Satisfactory: Yes Nausea and Vomiting Control Satisfactory: Yes Mental Status Recovered: Yes Vital Signs: Last Vital Signs Temp 36.8 C 05/07/20 10:35 Pulse 53 L 05/07/20 10:35 Resp 17 05/07/20 10:35 BP 141/72 H 05/07/20 10:35 Pulse Ox 100 05/07/20 10:35
[2020-05-07] MEDS ORDERED: oxyCODONE 5 MG Tab PO PRN (10:46)
== END 2020-05-07 13:35 | disposition home or self-care (01) ==
LOC: JD.SDS 07:32
PROVIDERS: ATTEND Surgery
DX: K80.10 Calculus of gallbladder with chronic cholecystitis without obstruction (principal); E78.00 Pure hypercholesterolemia, unspecified; I10 Essential (primary) hypertension; E11.9 Type 2 diabetes mellitus without complications; E78.5 Hyperlipidemia, unspecified; F41.9 Anxiety disorder, unspecified; Z88.0 Allergy status to penicillin; Z79.82 Long term (current) use of aspirin; Z79.84 Long term (current) use of oral hypoglycemic drugs; Z79.899 Other long term (current) drug therapy
CPT/HCPCS: 47562; 82962; A9270; J0690; J1170; J2001; J2250; J2704; J3010; J3490; J7120; 00790; 88304

== ENCOUNTER 2020-05-07 18:58 | Emergency (ER) | payer MEDICARE, OTHER ==
--- NOTE | 2020-05-07 19:47 | EDM.PDOC ---
ED HPI GENERAL MEDICAL PROBLEM - General Chief Complaint: Genitourinary Problem Stated Complaint: HAD SURGERY HASN'T VOIDED YET Time Seen by Provider: 05/07/20 19:17 Source of Information: Reports: Patient History Limitations: Reports: No Limitations - History of Present Illness INITIAL COMMENTS - FREE TEXT/NARRATIVE: Mrs. Ho is a very pleasant 74-year-old woman who underwent a laparoscopic cholecystectomy this morning, who now presents to the ED with the inability to urinate. She states that she last urinated before she came to the hospital this morning. She believes that her surgery was scheduled for around 7:00, and that she was done around 8:30. She was discharged home around 13:00, not having urinated. She states that she has still been unable to urinate, although she denies feeling suprapubic pain or pressure. She is just concerned that she has not been able to urinate so far. No prior similar symptoms. Here in the ED, the patient's initial BP is found to be elevated at 184/79, otherwise, she is hemodynamic stable, afebrile, saturating 94% on room air. Other than her inability to urinate, the patient denies having a recent fever, chills, sore throat, ear pain, nasal or sinus congestion, cough, dyspnea, chest pain, palpitations, nausea, vomiting, constipation, diarrhea, abdominal pain, urinary symptoms, recent weight gain or weight loss, recent bloody bowel movements or black bowel movements, recent joint aches, headaches, or rashes. The patient PCP is Tali Alonso NP. Her Surgeon is Dr. Faraz Ely. Right Abdomen Pain Score (Numeric/FACES): 5 - Related Data Allergies Allergy/AdvReac Type Severity Reaction Status Date / Time Penicillins Allergy Rash Verified 05/06/20 16:59 Home Meds: Home Meds OLANZapine [Olanzapine] 5 mg PO BEDTIME 01/15/18 [History] atorvaSTATin [Lipitor] 40 mg PO BEDTIME 01/15/18 [History] Aspirin 81 mg PO DAILY 01/26/20 [History] Metoprolol Succinate 100 mg PO DAILY 01/26/20 [History] clonazePAM [Clonazepam] 1 mg PO BEDTIME 01/26/20 [History] hydroCHLOROthiazide [Hydrochlorothiazide] 12.5 mg PO DAILY 01/26/20 [History] metFORMIN HCl [Metformin HCl] 1,000 mg PO BID 01/26/20 [History] ALPRAZolam [Xanax] 0.25 mg PO DAILY PRN 05/07/20 [History] oxyCODONE 5 mg PO Q4H PRN #15 tab 05/07/20 [Rx] Past Medical History HEENT History: Reports: Impaired Vision (wears glasses), Other (See Below) Cardiovascular History: Reports: High Cholesterol, Hypertension Psychiatric History: Reports: Anxiety, Other (See Below) (Insomnia) Endocrine/Metabolic History: Reports: Diabetes, Type II Oncologic (Cancer) History: Reports: Uterine (s/p hysterectomy) - Past Surgical History HEENT Surgical History: Reports: Cataract Surgery (bilateral) GI Surgical History: Reports: Cholecystectomy (05/07/2020), Colon (Laparoscopic right hemicolectomy 02/10/2020), Colonoscopy, EGD Female Surgical History: Reports: Hysterectomy (complete), Tubal Ligation Social & Family History - Family History Family Medical History: Noncontributory - Tobacco Use Smoking Status *Q: Never Smoker Second Hand Smoke Exposure: No - Caffeine Use Caffeine Use: Reports: Coffee - Alcohol Use Alcohol Use History: Yes Alcohol Use Frequency: Socially - Recreational Drug Use Recreational Drug Use: No - Living Situation & Occupation Living situation: Reports: , with Spouse Occupation: Retired ED ROS GENERAL - Review of Systems Review Of Systems: Comprehensive ROS is negative, except as noted in HPI. ED EXAM, RENAL/ - Physical Exam Exam: See Below Exam Limited By: No Limitations General Appearance: Alert, WD/WN, No Apparent Distress Eye Exam: Bilateral Eye: EOMI, Normal Inspection Ears: Normal External Exam, Hearing Grossly Normal Nose: Normal Inspection Throat/Mouth: Normal Inspection, Normal Lips, Normal Voice, No Airway Compromise Head: Atraumatic, Normocephalic Neck: Normal Inspection, Full Range of Motion Respiratory/Chest: No Respiratory Distress, Lungs Clear, Normal Breath Sounds, No Accessory Muscle Use Cardiovascular: Normal Peripheral Pulses, Regular Rate, Rhythm, No Edema, No Gallop, No JVD, No Murmur, No Rub GI/Abdominal: Normal Bowel Sounds, Soft, No Organomegaly, No Distention, No Abnormal Bruit, No Mass, Tender (mild appropriate black-incisional, but no suprapubic tenderness) (Female) Exam: Deferred Rectal (Female) Exam: Deferred Back Exam: Normal Inspection, Full Range of Motion. No: CVA Tenderness (L), CVA Tenderness (R) Extremities: Normal Inspection, Normal Range of Motion, No Pedal Edema, Normal Capillary Refill Neurological: Alert, Oriented, Normal Cognition, No Motor/Sensory Deficits Psychiatric: Normal Affect Skin Exam: Warm, Dry, Intact, Normal Color, No Rash Course - Vital Signs Last Recorded V/S: Last Vital Signs Temp 36.3 C 05/07/20 19:15 Pulse 61 05/07/20 19:15 Resp 16 05/07/20 19:15 BP 184/79 H 05/07/20 19:15 Pulse Ox 94 L 05/07/20 19:15 - Re-Assessments/Exams Free Text/Narrative Re-Assessment/Exam: 05/07/20 19:41 As above, the patient underwent a laparoscopic cholecystectomy this morning, and has not been able to urinate since prior to coming to the hospital. She does not have any suprapubic pain or pressure, but she is concerned about not being able to urinate. A bladder scan revealed 235 mL of urine. 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 Even if we split the difference at 300 mL, the patient does not have enough urine to warrant placing a catheter. I explained that the reason for the conservative approach is because Canas catheters can lead to urinary tract infections. The patient expressed understanding. I explained to the patient that the reason she cannot urinate is because of the anticholinergic effect of one of the medicines that she was given at anesthesia, and it is only a matter of time until that medicine wears off before the patient can urinate again. That could happen any time. I recommended to the patient that if she is unable to urinate by tomorrow morning, or if overnight she develops suprapubic pressure and the sensation of the need to urinate, that she then returned to the ER for reevaluation, because at that point she will most likely have over 300 mL of urine. I explained that if that were the case, we would place a Canas catheter which could stay in place over the weekend and be removed by her PCP on Monday. Again, the patient expressed understanding. Departure - Departure Time of Disposition: 19:45 Disposition: Home, Self-Care 01 Condition: Good Clinical Impression: Postoperative urinary retention - Discharge Information *PRESCRIPTION DRUG MONITORING PROGRAM REVIEWED*: Not Applicable *COPY OF PRESCRIPTION DRUG MONITORING REPORT IN PATIENT ANTONIO: Not Applicable Instructions: Acute Urinary Retention, Female, [id number] Referrals: Faraz Ely MD [Primary Care Provider] - Tali Alonso NP [Nurse Practitioner] - Forms: ED Department Discharge Additional Instructions: You were seen in the emergency room after being unable to urinate following a laparoscopic cholecystectomy this morning. A bladder scan in the ER revealed 235 mL of urine. As discussed, the reason you cannot urinate is because of the effects of one of the medicines you were given when you were anesthetized for your operation. That medicine will wear off at some point, and you will be able to urinate again, however, it is difficult to estimate when that will be. If you have not urinated by the morning, or if, overnight, you develop lower abdominal pressure and the sensation that you need to urinate, please return to the ER for reevaluation. If you have 300 mL or more of urine in your bladder, a Canas catheter will be placed. If any other problems, please do not hesitate to return to the ER. Sepsis Event Note (ED) - Evaluation Sepsis Screening Result: No Definite Risk - Focused Exam Vital Signs: Vital Signs Temp Pulse Resp BP Pulse Ox 05/07/20 19:15 36.3 C 61 16 184/79 H 94 L
== END 2020-05-07 19:53 | disposition home or self-care (01) ==
LOC: JD.ED 18:58
DX: N99.89 Other postprocedural complications and disorders of genitourinary system (principal); R33.8 Other retention of urine; I10 Essential (primary) hypertension; F41.9 Anxiety disorder, unspecified; E11.9 Type 2 diabetes mellitus without complications; Z90.710 Acquired absence of both cervix and uterus; Z88.0 Allergy status to penicillin; Z79.82 Long term (current) use of aspirin; Z79.899 Other long term (current) drug therapy; Z90.49 Acquired absence of other specified parts of digestive tract; Z79.84 Long term (current) use of oral hypoglycemic drugs; K80.10 Calculus of gallbladder with chronic cholecystitis without obstruction; E78.00 Pure hypercholesterolemia, unspecified; E78.5 Hyperlipidemia, unspecified
CPT/HCPCS: 47562; 51702; 51798; 82962; 88304; 99283; A9270; J0690; J1170; J2001; J2250; J2704; J3010; J3490; J7120; 00790; 99282

== ENCOUNTER 2020-06-28 08:36 | Emergency (ER) | payer MEDICARE, OTHER ==
[2020-06-28] MEDS ORDERED: Sodium Chloride 0.9% 1,000 ML IV STA (09:23)
[2020-06-28] MEDS ORDERED: Sodium Chloride 0.9% 10 ML Syringe FLUSH PRN (09:23)
[2020-06-28] MEDS ORDERED: Ondansetron 4 MG/2 ML SDV IVPUSH ONE (09:23)
[2020-06-28] MEDS ORDERED: HYDROmorphone 0.5 MG/0.5 ML Syringe IVPUSH ONE (09:24)
[2020-06-28] MEDS ORDERED: Potassium Chloride 10 MEQ in Premix Bag 1 BAG IV SCH (10:15)
--- NOTE | 2020-06-28 11:13 | EDM.PDOC ---
ED HPI GENERAL MEDICAL PROBLEM - General Chief Complaint: Gastrointestinal Problem Stated Complaint: NAUSEA,VOMITING AND ABDOMINAL PAIN AFTER EATING Time Seen by Provider: 06/28/20 09:04 Source of Information: Reports: Patient History Limitations: Reports: No Limitations - History of Present Illness INITIAL COMMENTS - FREE TEXT/NARRATIVE: The patient presents for abdominal pain, nausea and vomiting. This started about a week ago. She is also feeling weak. She has no fever, chills, cough, congestion, runny nose, chest pain or shortness of breath. She dose have some loose stools with it also. She has a history of colon cancer where in January she had part of her colon removed by Dr Ely. Six weeks ago she had her gallbladder removed. She has not eaten any bad food and she has not been around any one who has been sick. She has no dysuria. Onset: Gradual Duration: Week(s): (1) Location: Reports: Abdomen Quality: Reports: Ache Severity: Mild Improves with: Reports: None Worsens with: Reports: None Associated Symptoms: Reports: Nausea/Vomiting. Denies: Chest Pain, Cough, Fever/Chills, Headaches, Shortness of Breath Lower Abdomen Pain Score (Numeric/FACES): 8 - Related Data Allergies Allergy/AdvReac Type Severity Reaction Status Date / Time Penicillins Allergy Rash Verified 06/28/20 09:06 Home Meds: Home Meds OLANZapine [Olanzapine] 5 mg PO BEDTIME 01/15/18 [History] atorvaSTATin [Lipitor] 40 mg PO BEDTIME 01/15/18 [History] Aspirin 81 mg PO DAILY 01/26/20 [History] Metoprolol Succinate 100 mg PO DAILY 01/26/20 [History] clonazePAM [Clonazepam] 1 mg PO BEDTIME 01/26/20 [History] hydroCHLOROthiazide [Hydrochlorothiazide] 12.5 mg PO DAILY 01/26/20 [History] metFORMIN HCl [Metformin HCl] 500 mg PO BID 01/26/20 [History] ALPRAZolam [Xanax] 0.25 mg PO DAILY PRN 05/07/20 [History] Ondansetron [Zofran ODT] 4 mg PO Q6H PRN #20 tab.dis 06/28/20 [Rx] Potassium Chloride 20 meq PO DAILY #30 tablet.er 06/28/20 [Rx] lisinopriL [Prinivil] 20 mg PO DAILY 06/28/20 [History] Past Medical History HEENT History: Reports: Impaired Vision, Other (See Below) Other HEENT History: wears reading glasses, dental infection Cardiovascular History: Reports: High Cholesterol, Hypertension Respiratory History: Reports: Other (See Below) Other Respiratory History: PULMONARY NODULE Gastrointestinal History: Reports: Chronic Constipation Genitourinary History: Reports: None [employer] History: Reports: None Musculoskeletal History: Reports: Back Pain, Chronic Neurological History: Reports: None Psychiatric History: Reports: Anxiety, Other (See Below) Endocrine/Metabolic History: Reports: Diabetes, Type II Hematologic History: Reports: None Immunologic History: Reports: None Oncologic (Cancer) History: Reports: Uterine Other Oncologic History: ENDOMETRIAL CARCINOMA Dermatologic History: Reports: None - Infectious Disease History Infectious Disease History: Reports: None - Past Surgical History Head Surgeries/Procedures: Reports: None HEENT Surgical History: Reports: Cataract Surgery Respiratory Surgical History: Reports: None GI Surgical History: Reports: Cholecystectomy, Colon, Colonoscopy, EGD Female Surgical History: Reports: Hysterectomy, Tubal Ligation Neurological Surgical History: Reports: None Musculoskeletal Surgical History: Reports: None Dermatological Surgical History: Reports: None Social & Family History - Family History Family Medical History: Noncontributory - Tobacco Use Tobacco Use Status *Q: Never Tobacco User Second Hand Smoke Exposure: No - Caffeine Use Caffeine Use: Reports: Coffee - Alcohol Use Days Per Week of Alcohol Use: 7 Number of Drinks Per Day: 2 Total Drinks Per Week: 14 - Recreational Drug Use Recreational Drug Use: No - Living Situation & Occupation Living situation: Reports: , with Spouse Occupation: Retired ED ROS GENERAL - Review of Systems Review Of Systems: See Below Constitutional: Reports: No Symptoms HEENT: Reports: No Symptoms Respiratory: Reports: No Symptoms Cardiovascular: Reports: No Symptoms Endocrine: Reports: No Symptoms GI/Abdominal: Reports: Abdominal Pain, Diarrhea, Nausea, Vomiting : Reports: No Symptoms Musculoskeletal: Reports: No Symptoms ED EXAM, GI/ABD - Physical Exam Exam: See Below Exam Limited By: No Limitations General Appearance: Alert, No Apparent Distress Ears: Normal External Exam Nose: Normal Inspection Head: Atraumatic, Normocephalic Neck: Normal Inspection Respiratory/Chest: No Respiratory Distress, Lungs Clear, Normal Breath Sounds Cardiovascular: Regular Rate, Rhythm, No Edema, No Murmur GI/Abdominal Exam: Soft, Non-Tender, No Organomegaly, No Mass, Tender (Mild generalized abdominal pain) Course - Vital Signs Last Recorded V/S: Last Vital Signs Temp 98.5 F 06/28/20 09:03 Pulse 100 06/28/20 09:03 Resp 16 06/28/20 09:03 BP 136/77 06/28/20 09:03 Pulse Ox 100 06/28/20 09:03 - Orders/Labs/Meds Orders: Active Orders 24 hr Category Date Time Status Peripheral IV Care [RC] . DIRECTED Care 06/28/20 09:23 Active Abdomen Pelvis w Cont [CT] Stat Exams 06/28/20 09:23 Ordered Potassium Chloride [KCl 10 MEQ in Water 100 ML] 10 meq Med 06/28/20 10:15 Active Premix Bag 1 bag IV ASDIRECTED Sodium Chloride 0.9% [Saline Flush] Med 06/28/20 09:23 Active 10 ml FLUSH ASDIRECTED PRN ED Antiemetic Medication Reflex [OM.PC] Stat Oth 06/28/20 09:23 Ordered Peripheral IV Insertion Adult [OM.PC] Stat Oth 06/28/20 09:23 Ordered Medication Orders Potassium Chloride 10 meq/ (Premix) 100 mls @ 100 mls/hr IV ASDIRECTED CURTIS Stop: 06/29/20 11:14 Last Infusion: 06/28/20 12:02 Dose: 100 mls/hr Documented by: Admin: 06/28/20 10:43 Dose: 100 mls/hr Documented by: SIDDHARTHA Sodium Chloride (Saline Flush) 10 ml FLUSH ASDIRECTED PRN PRN Reason: Keep Vein Open Last Admin: 06/28/20 09:33 Dose: 10 ml Documented by: RADHA Labs: Laboratory Tests 06/28/20 06/28/20 06/28/20 Range/Units 09:10 09:10 10:45 WBC 5.35 (3.98-10.04) K/mm3 RBC 4.32 (3.98-5.22) M/mm3 Hgb 13.0 (11.2-15.7) gm/dl Hct 38.5 (34.1-44.9) % MCV 89.1 D (79.4-94.8) fl MCH 30.1 (25.6-32.2) pg MCHC 33.8 (32.2-35.5) g/dl RDW Std Deviation 42.5 (36.4-46.3) fL Plt Count 206 (182-369) K/mm3 MPV 10.6 (9.4-12.3) fl Neut % (Auto) 57.8 (34.0-71.1) % Lymph % (Auto) 14.6 L (19.3-51.7) % Carter % (Auto) 24.9 H (4.7-12.5) % Eos % (Auto) 1.9 (0.7-5.8) Baso % (Auto) 0.2 (0.1-1.2) % Neut # (Auto) 3.10 (1.56-6.13) K/mm3 Lymph # (Auto) 0.78 L (1.18-3.74) K/mm3 Carter # (Auto) 1.33 H (0.24-0.36) K/mm3 Eos # (Auto) 0.10 (0.04-0.36) K/mm3 Baso # (Auto) 0.01 (0.01-0.08) K/mm3 Manual Slide Review Abnormal smear Sodium 132 L D (136-145) mEq/L Potassium 2.8 L (3.5-5.1) mEq/L Chloride 93 L D (98-107) mEq/L Carbon Dioxide 28 (21-32) mEq/L Anion Gap 13.8 (5-15) BUN 13 (7-18) mg/dL Creatinine 0.8 (0.55-1.02) mg/dL Est Cr Clr Drug Dosing TNP Estimated GFR (MDRD) > 60 (>60) mL/min BUN/Creatinine Ratio 16.3 (14-18) Glucose 165 H (83-115) mg/dL Calcium 8.8 (8.5-10.1) mg/dL Total Bilirubin 0.7 (0.2-1.0) mg/dL AST 85 H (15-37) U/L ALT 136 H (14-59) U/L Alkaline Phosphatase 81 (46-116) U/L Total Protein 6.5 (6.4-8.2) g/dl Albumin 3.2 L (3.4-5.0) g/dl Globulin 3.3 gm/dL Albumin/Globulin Ratio 1.0 (1-2) Lipase 99 (73-393) U/L Urine Color Yellow (Yellow) Urine Appearance Clear (Clear) Urine pH 6.5 (5.0-8.0) Ur Specific [place] 1.015 (1.005-1.030) Urine Protein 1+ H (Negative) Urine Glucose (UA) Negative (Negative) Urine Ketones Negative (Negative) Urine Occult Blood Negative (Negative) Urine Nitrite Negative (Negative) Urine Bilirubin Negative (Negative) Urine Urobilinogen 0.2 (0.2-1.0) Ur Leukocyte Esterase 1+ H (Negative) Urine RBC Not seen (0-5) /hpf Urine WBC 10-20 H (0-5) /hpf Ur Squamous Epith Cells 0-5 (0-5) /hpf Urine Bacteria Few (FEW) /hpf Urine Mucus Few (FEW) /hpf Meds: Medications Generic Name Dose Route Start Last Admin Trade Name Freq PRN Reason Stop Dose Admin Potassium Chloride 10 meq/ 100 mls @ 100 mls/hr 06/28/20 10:15 06/28/20 12:02 Premix IV 06/29/20 11:14 Infused ASDIRECTED CURTIS Infusion Sodium Chloride 10 ml 06/28/20 09:23 06/28/20 09:33 Saline Flush FLUSH 10 ml ASDIRECTED PRN Administration Keep Vein Open Discontinued Medications Generic Name Dose Route Start Last Admin Trade Name Freq PRN Reason Stop Dose Admin Diatrizoate Meglum/Diatrizoate Sod 90 ml 06/28/20 12:07 06/28/20 12:18 Gastrografin 37% PO 06/28/20 12:08 90 ml ONETIME ONE Administration Hydromorphone HCl 0.25 mg 06/28/20 09:24 06/28/20 09:32 Dilaudid IVPUSH 06/28/20 09:25 0.25 mg ONETIME ONE Administration Sodium Chloride 1,000 mls @ 1,000 mls/hr 06/28/20 09:23 06/28/20 09:32 Normal Saline IV 06/28/20 10:22 1,000 mls/hr .BOLUS STA Administration Iopamidol 100 ml 06/28/20 12:07 06/28/20 12:19 Isovue-300 (61%) IVPUSH 06/28/20 12:08 100 ml ONETIME ONE Administration Ondansetron HCl 4 mg 06/28/20 09:23 06/28/20 09:32 Zofran IVPUSH 06/28/20 09:24 4 mg ONETIME ONE Administration Sodium Chloride 10 ml 06/28/20 12:07 06/28/20 12:19 Saline Flush FLUSH 06/28/20 12:08 10 ml ONETIME ONE Administration - Re-Assessments/Exams Free Text/Narrative Re-Assessment/Exam: 06/28/20 11:13 I ordered an IV NS 1L bolus, zofran 4mg IV, dilaudid 0.25mg IV, labs, UA and a CT of her abdomen and pelvis. Her CBC looks good. Her Na was low at 132. Her K was low at 2.8. Her glucose was elevated at 165. Her AST is elevated at 85. Her ALT is elevated at 136. Her lipase is negative. I am waiting for the UA and CT. 06/28/20 13:06 Her UA shwos no UTI. I did order some IV potassium. The CT shows postsurgical changes compatible with prior partial colectomy. There is mild to moderate grade dilatation of multiple small bowel loops and the remaining colon. Findings could represent ileus or mild partial obstruction. No free air identified. Status post cholecystectomy without biliary tract obstruction. Small stone in the upper pole of the left kidney. No hydronephrosis present. There is also a small stone int he midportion of the right kidney. She feels better. I do not feel this is an obstruction. I called Dr Doll and he did not think it was an obstruction either. He wants her on some zofran and follow up with Dr Ely. I will also get her on some potassium. Departure - Departure Time of Disposition: 13:15 Disposition: Home, Self-Care 01 Condition: Good Clinical Impression: Hypokalemia Abdominal pain Qualifiers: Abdominal location: generalized Qualified Code(s): R10.84 - Generalized abdominal pain Nausea & vomiting Qualifiers: Vomiting type: unspecified Vomiting Intractability: non-intractable Qualified Code(s): R11.2 - Nausea with vomiting, unspecified - Discharge Information *PRESCRIPTION DRUG MONITORING PROGRAM REVIEWED*: Not Applicable *COPY OF PRESCRIPTION DRUG MONITORING REPORT IN PATIENT ANTONIO: Not Applicable Prescriptions: Potassium Chloride 20 meq PO DAILY #30 tablet.er Ondansetron [Zofran ODT] 4 mg PO Q6H PRN #20 tab.dis PRN Reason: Nausea\vomiting Referrals: Tali Alonso, [employer] [Primary Care Provider] - Faraz Ely MD [Physician] - 2 Days Forms: ED Department Discharge Additional Instructions: Drink plenty of fluids. Advance your diet as tolerated. Take the zofran every 6 hours as needed for nausea and vomiting. Take the potassium daily. Call Dr Ely's office in the morning. Please return if you are worse. Sepsis Event Note (ED) - Evaluation Sepsis Screening Result: No Definite Risk - Focused Exam Vital Signs: Vital Signs Temp Pulse Resp BP Pulse Ox 06/28/20 09:03 98.5 F 100 16 136/77 100 - My Orders Last 24 Hours: My Active Orders 06/28/20 09:23 Peripheral IV Care [RC] . DIRECTED Abdomen Pelvis w Cont [CT] Stat Sodium Chloride 0.9% [Saline Flush] 10 ml FLUSH ASDIRECTED PRN ED Antiemetic Medication Reflex [OM.PC] Stat Peripheral IV Insertion Adult [OM.PC] Stat 06/28/20 10:15 Potassium Chloride [KCl 10 MEQ in Water 100 ML] 10 meq Premix Bag 1 bag IV ASDIRECTED - Assessment/Plan Last 24 Hours: My Active Orders 06/28/20 09:23 Peripheral IV Care [RC] . DIRECTED Abdomen Pelvis w Cont [CT] Stat Sodium Chloride 0.9% [Saline Flush] 10 ml FLUSH ASDIRECTED PRN ED Antiemetic Medication Reflex [OM.PC] Stat Peripheral IV Insertion Adult [OM.PC] Stat 06/28/20 10:15 Potassium Chloride [KCl 10 MEQ in Water 100 ML] 10 meq Premix Bag 1 bag IV ASDIRECTED
[2020-06-28] MEDS ORDERED: Iopamidol 612 MG/ML 100 ML Bottle IVPUSH ONE (12:07)
[2020-06-28] MEDS ORDERED: Diatrizoate Meglumine/Diatrizoate Sodium 37% 120 ML Bottle PO ONE (12:07)
[2020-06-28] MEDS ORDERED: Sodium Chloride 0.9% 10 ML Syringe FLUSH ONE (12:07)
--- NOTE | 2020-06-29 10:12 | CT ---
"PROCEDURE INFORMATION: Exam: CT Abdomen And Pelvis With Contrast Exam date and time: 06/28/2020 1:05 PM Age: 75 years old Clinical indication: Abdominal pain; Patient HX: HX cholecystectomy and artemio colectomy TECHNIQUE: Imaging protocol: Computed tomography of the abdomen and pelvis with intravenous contrast. Radiation optimization: All CT scans at this facility use at least one of these dose optimization techniques: automated exposure control; mA and/or kV adjustment per patient size (includes targeted exams where dose is matched to clinical indication); or iterative reconstruction. Contrast material: ISOVUE 300; Contrast volume: 100 ml; Contrast route: INTRAVENOUS (IV); Other contrast: Oral; COMPARISON: CT Chest Abdomen Pelvis w Cont 02/05/2020 8:31 AM FINDINGS: Liver: Normal. No mass. Gallbladder and bile ducts: The gallbladder is entirely contracted or has been removed. There is no biliary ductal dilatation. Pancreas: Normal. No ductal dilation. Spleen: Normal. No splenomegaly. Adrenal glands: Normal. No mass. Kidneys and ureters: Small stone is present within the upper pole left kidney measuring approximately 0.2 x 0.3 cm. There is also a small stone in the midportion the right kidney measuring approximately 0.2 x 0.2 cm. No hydronephrosis or ureteral calculi identified. Stomach and bowel: Multiple moderately dilated small bowel loops are present with air-fluid levels. The entirety of the small bowel is dilated. There is also mild dilatation of the colon with air-fluid levels in the colon. Findings may represent ileus or partial obstruction. Sutures are present within the right lower quadrant compatible with prior partial colectomy. Appendix: No evidence of appendicitis. Intraperitoneal space: Unremarkable. No free air. No significant fluid collection. CHUCK RUIZ | Final Radiology Report CONFIDENTIALITY STATEMENT This report is intended only for use by the referring physician, and only in accordance with law. If you received this in error, call [phone]. Page 2 of 2 Vasculature: Unremarkable. No abdominal aortic aneurysm. Lymph nodes: Unremarkable. No enlarged lymph nodes. Urinary bladder: Unremarkable as visualized. Reproductive: Unremarkable as visualized. Bones/joints: Unremarkable. No acute fracture. Soft tissues: Unremarkable. IMPRESSION: 1. Postsurgical changes compatible with prior partial colectomy. There is [id number] grade dilatation of multiple small bowel loops and the remaining colon. Findings could represent ileus or mild partial obstruction. No free air identified. 2. Status post cholecystectomy without biliary tract obstruction. 3. Small stone in the upper pole of the left kidney. No hydronephrosis present. There is also a small stone in the midportion of the right kidney. Thank you for allowing us to participate in the care of your patient. Dictated and Authenticated by: Leroy Wilkins MD 06/28/2020 1:41 PM Central Time ([place] & [place]) KENDRA"
== END 2020-06-28 13:30 | disposition home or self-care (01) ==
LOC: SUPCPDRO 08:36 → JD.ED 08:36
DX: E87.6 Hypokalemia (principal); R10.84 Generalized abdominal pain; R11.2 Nausea with vomiting, unspecified; I10 Essential (primary) hypertension; E78.00 Pure hypercholesterolemia, unspecified; E11.9 Type 2 diabetes mellitus without complications; F41.9 Anxiety disorder, unspecified; R79.89 Other specified abnormal findings of blood chemistry; R74.01 Elevation of levels of liver transaminase levels; Z88.0 Allergy status to penicillin; Z79.82 Long term (current) use of aspirin; Z79.84 Long term (current) use of oral hypoglycemic drugs; Z79.899 Other long term (current) drug therapy; Z98.51 Tubal ligation status; Z90.49 Acquired absence of other specified parts of digestive tract; Z90.710 Acquired absence of both cervix and uterus
CPT/HCPCS: 36415; 74177; 80053; 81001; 83690; 85025; 96365; 96366; 96375; 99284; J1170; J2405; J3480; J7030; Q9963; Q9967

== ENCOUNTER 2020-11-17 08:06 | Day surgery (SDC) | payer MEDICARE, OTHER ==
[~2020-11-17 08:06] MED LIST changes: -Lidocaine 1% 4 ML ONE; -Midazolam 1 MG/ML 2 ML SDV ONE; -Propofol 200 MG/20 ML SDV ONE; -Rocuronium 50 MG/5 ML Vial ONE; -fentaNYL 250 MCG/5 ML SDV ONE
[2020-11-17] MEDS ORDERED: Propofol 200 MG/20 ML SDV ONE (08:24)
[2020-11-17] MEDS ORDERED: fentaNYL 100 MCG/2 ML SDV ONE (08:24)
[2020-11-17] MEDS ORDERED: Lidocaine 1% 4 ML ONE (08:24)
[2020-11-17] MEDS ORDERED: Midazolam 1 MG/ML 2 ML SDV ONE (08:25)
--- NOTE | 2020-11-17 08:51 | PCM.PREANE ---
Preanesthetic Assessment - Procedure Proposed Procedure: diagnostic egd - Anesthesia/Transfusion/Family Hx Anesthesia History: Prior Anesthesia Without Reaction Family History of Anesthesia Reaction: No Transfusion History: No Prior Transfusion(s) - Review of Systems General: No Symptoms Pulmonary: No Symptoms Cardiovascular: No Symptoms Gastrointestinal: No Symptoms Neurological: No Symptoms Other: Reports: None, Diabetes - Physical Assessment NPO Status Date: 11/16/20 NPO Status Time: 18:00 Vital Signs: 113/72 54 99% 97.2 16 Height: 5 ft 2 in Weight: 65 kg ASA Class: 2 Mental Status: Alert & Oriented x3 Airway Class: Mallampati = 2 Dentition: Reports: Normal Dentition Thyro-Mental Finger Breadths: 3 Mouth Opening Finger Breadths: 3 ROM/Head Extension: Full Lungs: Clear to Auscultation, Normal Respiratory Effort Cardiovascular: Regular Rate, Regular Rhythm - Lab Values: Laboratory Last Values POC Glucose 109 mg/dL (83-110) 11/17/20 08:30 - Allergies Allergies/Adverse Reactions: Allergies Allergy/AdvReac Type Severity Reaction Status Date / Time Penicillins Allergy Rash Verified 11/16/20 13:05 - Blood Blood Available: No - Anesthesia Plan Beta Braulio: Metoprolol Med Last Dose Date: 11/17/20 Med Last Dose Time: 06:30 - Acknowledgements Anesthesia Type Planned: MAC Pt an Appropriate Candidate for the Planned Anesthesia: Yes Alternatives and Risks of Anesthesia Discussed w Pt/Guardian: Yes Pt/Guardian Understands and Agrees with Anesthesia Plan: Yes PreAnesthesia Questionnaire HEENT History: Reports: Impaired Vision, Other (See Below) Other HEENT History: wears reading glasses, dental infection Cardiovascular History: Reports: High Cholesterol, Hypertension Respiratory History: Reports: Other (See Below) Other Respiratory History: PULMONARY NODULE Gastrointestinal History: Reports: Cholelithiasis, Chronic Constipation, Other (See Below) Other Gastrointestinal History: Winslow's Genitourinary History: Reports: None 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: None Musculoskeletal History: Reports: Back Pain, Chronic (denies) Neurological History: Reports: None Psychiatric History: Reports: Anxiety, Other (See Below) Other Psychiatric History: insomnia Endocrine/Metabolic History: Reports: Diabetes, Type II Hematologic History: Reports: None Immunologic History: Reports: None Oncologic (Cancer) History: Reports: Colon (several months ago), Uterine Other Oncologic History: ENDOMETRIAL CARCINOMA Dermatologic History: Reports: None - Infectious Disease History Infectious Disease History: Reports: None - Past Surgical History Head Surgeries/Procedures: Reports: None HEENT Surgical History: Reports: Cataract Surgery Cardiovascular Surgical History: Reports: None Respiratory Surgical History: Reports: None GI Surgical History: Reports: Cholecystectomy, Colon, Colonoscopy, EGD Other GI Surgeries/Procedures: right hemicolectomy Female Surgical History: Reports: Hysterectomy, Tubal Ligation Male Surgical History: Reports: None Endocrine Surgical History: Reports: None Neurological Surgical History: Reports: None Musculoskeletal Surgical History: Reports: None Oncologic Surgical History: Reports: None Dermatological Surgical History: Reports: Other (See Below) - SUBSTANCE USE Tobacco Use Status *Q: Never Tobacco User Tobacco Use Within Last Twelve Months: No Second Hand Smoke Exposure: No Days Per Week of Alcohol Use: 4 Number of Drinks Per Day: 1 Total Drinks Per Week: 4 Recreational Drug Use History: No - HOME MEDS Home Medications: Home Meds OLANZapine [Olanzapine] 5 mg PO BEDTIME 01/15/18 [History] atorvaSTATin [Lipitor] 40 mg PO BEDTIME 01/15/18 [History] Aspirin 81 mg PO DAILY 01/26/20 [History] Metoprolol Succinate 100 mg PO DAILY 01/26/20 [History] clonazePAM [Clonazepam] 1 mg PO BEDTIME 01/26/20 [History] hydroCHLOROthiazide [Hydrochlorothiazide] 12.5 mg PO DAILY 01/26/20 [History] Docusate Sodium [Stool Softener] 100 mg PO BID PRN 11/16/20 [History] Losartan [Cozaar] 100 mg PO DAILY 11/16/20 [History] Omeprazole Magnesium [Prilosec Otc] 20 mg PO DAILY 11/16/20 [History] amLODIPine [Norvasc] 5 mg PO DAILY 11/16/20 [History] metFORMIN HCl [Metformin HCl] 1,000 mg PO BID 11/16/20 [History] - CURRENT (IN HOUSE) MEDS Current Meds: Current Medications Lactated Ringer's (Ringers, Lactated) 1,000 mls @ 125 mls/hr IV ASDIRECTED CURTIS Stop: 11/17/20 23:00 Lidocaine/Sodium Bicarbonate (Lidocaine 1%/Sod Bicarbonate In Ns 8.4% 1 Ml Syringe) 0.25 ml IDERM ONETIME PRN PRN Reason: Prior to IV Start Stop: 11/17/20 18:00 Sodium Chloride (Sodium Chloride 0.9% 10 Ml Syringe) 10 ml FLUSH ASDIRECTED PRN PRN Reason: Keep Vein Open Stop: 11/17/20 18:00 Discontinued Medications Fentanyl (Fentanyl 100 Mcg/2 Ml Sdv) Confirm Administered Dose 100 mcg .ROUTE .STK-MED ONE Stop: 11/17/20 08:25 Lidocaine HCl (Xylocaine-Mpf 1%) Confirm Administered Dose 4 mls @ as directed .ROUTE .STK-MED ONE Stop: 11/17/20 08:25 Midazolam HCl (Midazolam 1 Mg/Ml 2 Ml Sdv) Confirm Administered Dose 2 mg .ROUTE .STK-MED ONE Stop: 11/17/20 08:26 Propofol (Propofol 200 Mg/20 Ml Sdv) Confirm Administered Dose 200 mg .ROUTE .STK-MED ONE Stop: 11/17/20 08:25
--- NOTE | 2020-11-17 09:50 | PCM.PRNOTE ---
- Free Text/Narrative Note: Date: 11/17/2020 Procedure: screening esophagogastroscopy History: GERD with metaplastic changes Endoscopist: Faraz Ely MD Findings: no hiatal hernia, no gross evidence of esophagitis or metaplasia. Detailed Report: The patient was taken to the endoscopy suite and placed in left lateral decubitus position. Time out was performed and monitored anesthesia care was initiated. A bite block was plaed and the endoscope was inserted into the mouth. The scope was advanced to the stomach with ease. The gastric mucosa appeared normal and no hiatal hernia was noted on retroflexion of the scope. The scope was withdrawn into the distal esophagus. The Z line appeared normal with no gross evidence of inflammation or metaplasia. Several biopsies of the distal esophagus were obtained with cold forceps. Air was suctioned from the stomach prior to withdrawal of the scope. The patient tolerated the procedure well.
--- NOTE | 2020-11-17 09:51 | PCM48HPAN ---
Post Anesthesia Note - EVALUATION WITHIN 48HRS OF ANESTHETIC Vital Signs in Normal Range: Yes Patient Participated in Evaluation: Yes Respiratory Function Stable: Yes Airway Patent: Yes Cardiovascular Function Stable: Yes Hydration Status Stable: Yes Pain Control Satisfactory: Yes Nausea and Vomiting Control Satisfactory: Yes Mental Status Recovered: Yes Vital Signs: Last Vital Signs Temp 97.2 F 11/17/20 08:30 Pulse 54 L 11/17/20 08:30 Resp 16 11/17/20 08:30 BP 113/70 11/17/20 08:30 Pulse Ox 99 11/17/20 08:30 0946 105/66 92% 56 14 98.4
== END 2020-11-17 10:19 | disposition home or self-care (01) ==
LOC: JD.SDS 08:06
PROVIDERS: ATTEND Surgery
DX: K21.9 Gastro-esophageal reflux disease without esophagitis (principal); K31.89 Other diseases of stomach and duodenum; I10 Essential (primary) hypertension; E11.9 Type 2 diabetes mellitus without complications; K22.70 Barrett's esophagus without dysplasia; E78.5 Hyperlipidemia, unspecified; Z88.0 Allergy status to penicillin; Z79.899 Other long term (current) drug therapy; Z79.82 Long term (current) use of aspirin; Z98.890 Other specified postprocedural states; Z79.84 Long term (current) use of oral hypoglycemic drugs
CPT/HCPCS: 43239; 82962; J2704; J3010; J7120; 00731; 88305; J2250

== ENCOUNTER → 2022-02-10 | Day surgery (SDC) | payer MEDICARE, OTHER ==
[~2022-02-10] MED LIST changes: +Lidocaine 1% 4 ML ONE; +Propofol 200 MG/20 ML SDV ONE; +Sodium Chloride 0.9% 10 ML Syringe FLUSH SCH
== END | disposition home or self-care (01) ==
LOC: JD.SDS 06:59
PROVIDERS: ATTEND Surgery
DX: Z12.11 Encounter for screening for malignant neoplasm of colon (principal); K22.70 Barrett's esophagus without dysplasia; F41.9 Anxiety disorder, unspecified; I10 Essential (primary) hypertension; E78.00 Pure hypercholesterolemia, unspecified; E11.9 Type 2 diabetes mellitus without complications; Z88.0 Allergy status to penicillin; Z79.899 Other long term (current) drug therapy; Z85.038 Personal history of other malignant neoplasm of large intestine; Z90.49 Acquired absence of other specified parts of digestive tract; Z79.84 Long term (current) use of oral hypoglycemic drugs; Z98.890 Other specified postprocedural states
CPT/HCPCS: 00813; J2704; J7120

== ENCOUNTER 2022-12-29 09:36 | Day surgery (SDC) | payer MEDICARE, OTHER ==
[~2022-12-29 09:36] MED LIST changes: -Lidocaine 1% 4 ML ONE; -Propofol 200 MG/20 ML SDV ONE
[2022-12-29] MEDS ORDERED: Lidocaine 1% 4 ML ONE (09:45)
[2022-12-29] MEDS ORDERED: Propofol 200 MG/20 ML SDV ONE ×2 (09:45→10:31)
[2022-12-29] MEDS ORDERED: fentaNYL 100 MCG/2 ML SDV ONE (10:15)
== END 2022-12-29 11:50 | disposition home or self-care (01) ==
LOC: JD.SDS 09:36
PROVIDERS: ATTEND Surgery
DX: Z12.11 Encounter for screening for malignant neoplasm of colon (principal); K44.9 Diaphragmatic hernia without obstruction or gangrene; Q43.8 Other specified congenital malformations of intestine; K64.8 Other hemorrhoids; F41.9 Anxiety disorder, unspecified; I11.0 Hypertensive heart disease with heart failure; I50.9 Heart failure, unspecified; E78.00 Pure hypercholesterolemia, unspecified; F33.9 Major depressive disorder, recurrent, unspecified; E11.9 Type 2 diabetes mellitus without complications; G89.29 Other chronic pain; G47.00 Insomnia, unspecified; Z80.0 Family history of malignant neoplasm of digestive organs; Z88.0 Allergy status to penicillin; Z79.899 Other long term (current) drug therapy; Z98.890 Other specified postprocedural states; Z86.010 Personal history of colon polyps
CPT/HCPCS: 43239; 45378; 88305; J2704; J3010; J7120; 00813; 99100; J3490

== ENCOUNTER 2024-12-05 07:39 | Day surgery (SDC) | payer MEDICARE, OTHER ==
[~2024-12-05 07:39] MED LIST changes: -Lactated Ringers 1,000 ML IV SCH; -Lidocaine 1%/Sod Bicarbonate in NS 8.4% 1 ML Syringe IDERM PRN
[2024-12-05] MEDS ORDERED: Propofol 200 MG/20 ML SDV ONE ×2 (07:50)
[2024-12-05] MEDS: Lactated Ringers 1,000 ML IV SCH (08:00)
== END 2024-12-05 09:25 | disposition home or self-care (01) ==
LOC: JD.SDS 07:39
PROVIDERS: ATTEND Surgery
DX: Z12.11 Encounter for screening for malignant neoplasm of colon (principal); K21.9 Gastro-esophageal reflux disease without esophagitis; K44.9 Diaphragmatic hernia without obstruction or gangrene; J45.909 Unspecified asthma, uncomplicated; I11.0 Hypertensive heart disease with heart failure; I50.9 Heart failure, unspecified; E11.9 Type 2 diabetes mellitus without complications; K22.70 Barrett's esophagus without dysplasia; E78.00 Pure hypercholesterolemia, unspecified; F33.9 Major depressive disorder, recurrent, unspecified; Z79.899 Other long term (current) drug therapy; Z88.0 Allergy status to penicillin; Z85.038 Personal history of other malignant neoplasm of large intestine
CPT/HCPCS: 00813; 88305; 99100; J2704; J7120